=== PATIENT | male | born 1990 | race Caucasian/White ===

== ENCOUNTER 2018-06-30 06:03 | Emergency (ER) | payer SELFPAY ==
[~2018-06-30] VITALS: Ht 157.5 cm; Wt 128.0 kg
[2018-06-30] MEDS ORDERED: HYDROCODONE/ACETAMINOPHEN 5/325MG TABLET PO ONE (07:30)
[2018-06-30 11:00] VITALS: BP 147/94
== END 2018-06-30 11:16 | disposition home or self-care (01) ==
LOC: ER 06:03
DX: S92.355A Nondisplaced fracture of fifth metatarsal bone, left foot, initial encounter for closed fracture (principal); F17.210 Nicotine dependence, cigarettes, uncomplicated; F12.10 Cannabis abuse, uncomplicated; W18.2XXA Fall in (into) shower or empty bathtub, initial encounter; Y93.E1 Activity, personal bathing and showering; Y92.012 Bathroom of single-family (private) house as the place of occurrence of the external cause
CPT/HCPCS: 73630; 99283; Z7610

== ENCOUNTER 2019-04-18 23:08 | Emergency (ER) | payer OTHER ==
[~2019-04-18] VITALS: Ht 177.8 cm; Wt 109.0 kg
[2019-04-19 03:26] VITALS: BP 129/75
== END 2019-04-19 03:26 | disposition home or self-care (01) ==
LOC: ER 23:08
DX: S93.401A Sprain of unspecified ligament of right ankle, initial encounter (principal); F17.200 Nicotine dependence, unspecified, uncomplicated; F12.10 Cannabis abuse, uncomplicated; W18.31XA Fall on same level due to stepping on an object, initial encounter; Y93.89 Activity, other specified; Y92.89 Other specified places as the place of occurrence of the external cause; Y99.8 Other external cause status
CPT/HCPCS: 73610; 99283

== ENCOUNTER 2019-05-18 07:39 | Emergency (ER) | payer OTHER ==
[~2019-05-18] VITALS: Ht 180.3 cm; Wt 113.0 kg
[2019-05-18] MEDS ORDERED: DICYCLOMINE 10 MG/5 ML ORAL SYR PO STA (08:05)
[2019-05-18] MEDS ORDERED: MAGNESIUM/ALUMINUM HYDROXIDE/SIMETHICONE 30ML UDC PO STA (08:05)
[2019-05-18] MEDS ORDERED: SODIUM CHLORIDE 0.9% 1,000 ML IV ONE (08:05)
[2019-05-18] MEDS ORDERED: KETOROLAC 30MG/ML VIAL IV STA (08:05)
[2019-05-18 08:27] LABS: CHLORIDE 107 mEq/L (98-107)
[2019-05-18 08:28] LABS: HEMATOCRIT. 55.8 % (42.0-52.0); HEMOGLOBIN. 19.5 g/dL (14.0-18.0); MEAN CORPUSCULAR HEMOGLOBIN 30.7 pg (28.0-32.0); MEAN CORPUSCULAR VOLUME 87.7 fL (80.0-94.0); RED BLOOD CELL COUNT 6.37 mill/uL (4.7-6.1); RED CELL DISTRIBUTION WIDTH 12.3 % (11.6-14.6)
[2019-05-18 08:59] LABS: PLATELET 239 x1000/uL (130-400)
[2019-05-18 09:02] LABS: PLATELET ESTIMATE NORMAL
[2019-05-18] MEDS ORDERED: DIPHENHYDRAMINE 50MG CAPSULE PO ONE (09:15)
[2019-05-18 09:20] VITALS: BP 156/98
== END 2019-05-18 09:23 | disposition home or self-care (01) ==
LOC: ER 08:36
DX: R10.13 Epigastric pain (principal); D72.829 Elevated white blood cell count, unspecified; R03.0 Elevated blood-pressure reading, without diagnosis of hypertension; F12.90 Cannabis use, unspecified, uncomplicated
CPT/HCPCS: 36415; 80053; 83690; 85025; 96374; 99283; J1885; J7030; Q0163